=== PATIENT | male | born 1945 | race Caucasian/White ===

== ENCOUNTER 2017-04-26 08:59 | Emergency (ER) | payer MEDICARE ==
[~2017-04-26] VITALS: Ht 165.1 cm; Wt 110.9 kg
[~2017-04-26 08:59] MED LIST: ASCO500C7 GTB; BEN50 GTB; BISA10SU58 PR; DOCU-144 GTB; HEP30MU30 IJ; HYDR-3670 GTB; LANS30CA GTB; LANT3I SC; LEVE-5 GTB; LORA1TAB GTB; LOSA100T47 GTB; MAGN400T27 GTB; MULT-552 GTB; NA P118E PR; POLY17PO6 GTB; SCOP1PAT TD; SENN-53 GTB; WARF7.5T GTB
[2017-04-26 09:00] VITALS: Ht 165.1 cm; Wt 110.9 kg
[2017-04-26] MEDS ORDERED: PANTOPRAZOLE 40 MG INJ IV STA (09:32)
--- NOTE | 2017-04-26 09:36 | ERD ---
ER Documentation Chief Complaint Chief Complaint BIBA FOR COFFEE GROUND EMESIS X2 THIS MORNING HPI Patient is a 71-year-old male with history of stroke who is status post tracheostomy and G-tube who [facility] 2 episodes of coffee-ground emesis this morning. He is on Coumadin for PE. He has history of prior CVA and dementia, which limits history. ROS All systems reviewed and are negative except as per history of present illness. Medications Home Meds Active Scripts Pantoprazole Sodium (Protonix) 40 Mg Granpkt., 40 MG PO DAILY for 14 Days Prov:KAR PERDOMO MD 04/26/17 Reported Medications Insulin Aspart* (Novolog Insulin Pen*) 100 Unit/Ml Soln, 0 SC .SLIDING SCALE AC , EA 04/26/17 Olopatadine* (Patanol* Ophth) 0.1% - 5 Ml Drops, 1 DROP BOTH EYES BID, EA 04/26/17 Memantine* (Namenda*) 10 Mg Tablet, 10 MG PO BID, #60 TAB 04/26/17 Acetaminophen* (Acetaminophen*) 650 Mg Tablet, 650 MG GTB Q6H Y for PAIN AND OR ELEVATED TEMP, #30 TAB 04/26/17 Montelukast Sodium* (Montelukast Sodium*) 10 Mg Tablet, 10 MG GTB QHS, #30 TAB 04/26/17 Amino Acids/Protein Hydrolys (PRO-STAT LIQUID) 30 Ml Liquid.pkt, 30 ML PO DAILY 04/26/17 Escitalopram Oxalate* (Lexapro*) 10 Mg Tablet, 10 MG GTB DAILY, #30 TAB 04/26/17 Lorazepam* (Lorazepam*) 0.5 Mg Tablet, 0.5 MG PO HS Y for ANXIETY, TAB 04/26/17 Warfarin Sodium* (Coumadin*) 7.5 Mg Tablet, 7.5 MG GTB DAILY, TAB 12/04/15 Insulin Glargine* (Lantus*) 100 Unit/Ml Soln, 25 UNIT SC QHS, #1 VIAL 12/04/15 Lansoprazole* (Lansoprazole*) 30 Mg Capsule., 30 MG GTB DAILY, CAP 12/04/15 Docusate Sodium* (Colace*) 100 Mg Capsule, 100 MG GTB BID, #60 CAP 12/04/15 Levetiracetam* (Keppra*) 500 Mg Tablet, 500 MG GTB BID, TAB 12/04/15 Magnesium Oxide* (Mag-Oxide*) 400 Mg Tablet, 200 MG GTB DAILY, TAB 12/04/15 Discontinued Reported Medications Lorazepam* (Lorazepam*) 1 Mg Tablet, 1 MG GTB BID Y for ANXIETY, #30 TAB 12/04/15 Na Phos,M-B/Na Phos,Di-Ba* (Fleet* Enema) 118 Ml Enema, 118 ML LA Q48H Y for CONSTIPATION, ENEMA 12/04/15 Bisacodyl* (Dulcolax*) 10 Mg/Supp.rect Supp.rect, 10 MG LA Q24H Y for CONSTIPATION, SUPP.RECT 12/04/15 Losartan Potassium* (Cozaar*) 100 Mg Tablet, 100 MG GTB DAILY, #30 TAB 12/04/15 Heparin Sod (Porcine) (Heparin) 1,000 Unit/Ml Soln, 5000 UNIT IJ Q8 Y for DVT 12/04/15 Scopolamine Hydrobromide* (Transderm-Scop*) 0.33 Mg/24 Hr Patch.td72, 1 PATCH TD Q3D, #10 PATCH 12/04/15 Diphenhydramine Hcl* (Benadryl*) 50 Mg Cap, 50 MG GTB Q6 Y for ITCHING, CAP 12/04/15 Hydralazine Hcl* (Hydralazine Hcl*) 10 Mg Tablet, 20 MG GTB Q6 Y for ELEVATED BLOOD PRESSURE, #120 TAB 12/04/15 Polyethylene Glycol* (Miralax*) 17 Gm Powd.pack, 17 GM GTB DAILY Y for CONSTIPATION, #30 PACKET 12/04/15 Sennosides* (Senna Lax*) 8.6 Mg Tablet, 1 TAB GTB QHS, TAB 12/04/15 Multivitamins* (Once Daily*) 1 Tab Tablet, 1 TAB GTB DAILY, TAB 12/04/15 Ascorbic Acid* (Vitamin C*) 500 Mg Capsule.sa, 500 MG GTB DAILY, CAP 12/04/15 Allergies Allergies: Coded Allergies: iodine (Verified Allergy, Unknown, 04/26/17) penicillin (Verified Allergy, Unknown, 04/26/17) PMhx/Soc Medical history: Hemorrhagic stroke, dementia, pulmonary embolism, diabetes mellitus Past surgical history: Craniotomy, bilateral knee replacement, abdominal aneurysm repair Social history: [facility] in [facility], no alcohol or tobacco History of Surgery: No (bilateral knee surgery , crainotomy ) Anesthesia Reaction: No Hx Neurological Disorder: Yes Hx Respiratory Disorders: Yes (PT HAS TRACH ) Hx Cardiac Disorders: Yes Hx Psychiatric Problems: No Hx Miscellaneous Medical Probl: No (blood cloths with ivc filter placed) Hx Alcohol Use: No Hx Substance Use: No Hx Tobacco Use: No FmHx Noncontributory Physical Exam Vitals Vital Signs Date Time Temp Pulse Resp B/P Pulse Ox O2 Delivery O2 Flow Rate FiO2 04/26/17 09:15 4 04/26/17 09:00 97.9 104 22 129/92 96 Physical Exam Const: Poor eye contact, at baseline per Head: Atraumatic Eyes: Normal Conjunctiva, no pallor, no icterus, pupils equal, round and reactive ENT: Normal External Ears, Nose and Mouth. His membranes moist Neck: Full range of motion. No JVD Resp: Clear to auscultation bilaterally no wheezes, no rales Cardio: Regular rate and rhythm, no murmurs Abd: Soft, non tender, non distended. Skin: No petechiae or rashes Ext: No cyanosis, or edema Neur: Awake, does not follow commands, no spontaneous movement Psych: Able to assess due to patient's condition Result Diagram: 04/26/17 1107 04/26/17 1107 Results 24 hrs Laboratory Tests Test 04/26/17 11:07 04/26/17 13:00 White Blood Count 13.710^3/ul Red Blood Count 6.2210^6/ul Hemoglobin 17.7g/dl Hematocrit 53.8% Mean Corpuscular Volume 86.5fl Mean Corpuscular Hemoglobin 28.5pg Mean Corpuscular Hemoglobin Concent 32.9g/dl Red Cell Distribution Width 15.9% Platelet Count 00339^3/UL Mean Platelet Volume 13.1fl Neutrophils % 70.7% Lymphocytes % 12.8% Monocytes % 13.9% Eosinophils % 1.6% Basophils % 0.4% Nucleated Red Blood Cells % 0.0/100WBC Neutrophils # 9.710^3/ul Lymphocytes # 1.810^3/ul Monocytes # 1.910^3/ul Eosinophils # 0.210^3/ul Basophils # 0.110^3/ul Nucleated Red Blood Cells # 0.010^3/ul Prothrombin Time 26.9Sec Prothrombin Time Ratio 2.1 INR International Normalized Ratio 2.41 Activated Partial Thromboplast Time 38.9Sec Sodium Level 137mmol/L Potassium Level 4.6mmol/L Chloride Level 101mmol/L Carbon Dioxide Level 29mmol/L Anion Gap 12 Blood Urea Nitrogen 15mg/dl Creatinine 0.77mg/dl Glucose Level 172mg/dl Calcium Level 9.4mg/dl Total Bilirubin 0.8mg/dl Direct Bilirubin 0.00mg/dl Indirect Bilirubin 0.8mg/dl Aspartate Amino Transf (AST/SGOT) 30IU/L Alanine Aminotransferase (ALT/SGPT) 40IU/L Alkaline Phosphatase 118IU/L Troponin I < 0.012ng/ml Total Protein 7.1g/dl Albumin 3.7g/dl Globulin 3.40g/dl Albumin/Globulin Ratio 1.08 Stool Occult Blood NEGATIVE Current Medications Medications (Trade) Dose Ordered Sig/Luis Fernando Route PRN Reason Start Time Stop Time Status Last Admin Dose Admin Pantoprazole (Protonix Iv) 40 mg ONCE STAT IV 04/26/17 09:32 04/26/17 09:33 DC 04/26/17 11:38 Procedures/MDM EKG read by me: Time 1007, rate 107 Rhythm: Sinus tachycardia Bl[place]: Left axis deviation Intervals: Normal ST-T waves: no ischemic changes Ectopy: Occasional PVCs Q-waves: Inferior and lateral Q waves Impression: No evidence of ischemia, evidence of prior [place] MDM: Patient is a 71-year-old male [facility] for 2 episodes of coffee-ground emesis. The patient is vent dependent and nonverbal. He was found to have a normal hemoglobin and negative guaiac. There was no further episodes of emesis while in the ER. The patient was hemodynamically stable and without respiratory complication. He did require suctioning of a large volume of mucus, but chest x-ray did not show pneumonia. The patient is on Coumadin for prior PE. I do not suspect significant gastric bleeding. I believe he can be safely [facility] the [facility] with Protonix and return precautions if there are further episodes of coffee-ground emesis, hematemesis, or dark stools. Departure Diagnosis: Primary Impression: Coffee ground emesis Condition: Stable KAR PERDOMO MD Apr 26, 2017 09:36
[2017-04-26] MEDS ORDERED: LORA0.5T PO (10:11)
[2017-04-26] MEDS ORDERED: ESCI10TA GTB (10:12)
[2017-04-26] MEDS ORDERED: AMIN30LI PO (10:13)
[2017-04-26] MEDS ORDERED: MONT10TA24 GTB (10:13)
[2017-04-26] MEDS ORDERED: ACET-2047 GTB (10:14)
[2017-04-26] MEDS ORDERED: MEMA10TA16 PO (10:14)
[2017-04-26] MEDS ORDERED: NOVO3I SC (10:15)
[2017-04-26] MEDS ORDERED: OLOP5DRO12 BOTH EYES (10:15)
--- NOTE | 2017-04-26 10:16 | RADRPT ---
PROCEDURE: XR Chest. CLINICAL INDICATION: Upper GI bleed TECHNIQUE: A single AP view of the chest was obtained. COMPARISON: CR PORT CHEST 12/06/2015; CR CHEST 12/04/2015; CR CHEST 10/19/2015; CR CHEST 10/16/2015 FINDINGS: A tracheostomy tube is in place. Lung volumes are low with compressive changes and crowding of the central pulmonary vascular marking s. No focal airspace opacity, pleural effusion or pneumothorax is seen. The cardiomediastinal silho uette is mildly enlarged. Calcifications are seen within the aortic arch. The osseous structures ar e unremarkable. IMPRESSION: 1. Low lung volumes with compressive changes. 2. Mild cardiomegaly and aortic atherosclerosis. 3. Tracheostomy tube in place. RPTAT: HH .Kamryn Harding MD, Date Time Electronically viewed and signed by .Kamryn Harding MD, on 04/26/2017 10:16 .G/
[2017-04-26 11:15] LABS: ABNORMAL IP MESSAGE 1; BASOPHIL # 0.1 10^3/ul (0.0-0.1); BASOPHILS % 0.4 % (0.0-2.0); EOSINOPHILS # 0.2 10^3/ul (0.0-0.5); EOSINOPHILS % 1.6 % (0.0-7.0); HEMATOCRIT 53.8 % (42.0-52.0); HEMOGLOBIN 17.7 g/dl (14.0-18.0); LYMPHOCYTES # 1.8 10^3/ul (0.8-2.9); LYMPHOCYTES % 12.8 % (15.0-51.0); MEAN CORPUSCULAR HEMOGLOBIN 28.5 pg (29.0-33.0); MEAN CORPUSCULAR HGB CONC 32.9 g/dl (32.0-37.0); MEAN CORPUSCULAR VOLUME 86.5 fl (82.0-101.0); MONOCYTE # 1.9 10^3/ul (0.3-0.9); MONOCYTES % 13.9 % (0.0-11.0); NEUTROPHIL # 9.7 10^3/ul (1.6-7.5); NEUTROPHILS % 70.7 % (39.0-77.0); PLATELET COUNT 190 10^3/UL (140-415); POSITIVE DIFF @See below; RED BLOOD COUNT 6.22 10^6/ul (4.70-6.10); RED CELL DISTRIBUTION WIDTH 15.9 % (11.5-14.5); WHITE BLOOD COUNT 13.7 10^3/ul (4.8-10.8)
[2017-04-26 11:16] LABS: MEAN PLATELET VOLUME 13.1 fl (7.4-10.4)
[2017-04-26 11:37] LABS: ALANINE AMINOTRANSFERASE 40 IU/L (13-69); ALBUMIN 3.7 g/dl (3.3-4.9); ALBUMIN/GLOBULIN RATIO 1.08; ALKALINE PHOSPHATASE 118 IU/L (42-121); ANION GAP 12 (8-16); ASPARTATE AMINO TRANSFERASE 30 IU/L (15-46); BILIRUBIN,INDIRECT 0.8 mg/dl (0-1.1); BILIRUBIN,TOTAL 0.8 mg/dl (0.2-1.3); BLOOD UREA NITROGEN 15 mg/dl (7-20); CALCIUM 9.4 mg/dl (8.4-10.2); CARBON DIOXIDE 29 mmol/L (21-31); CHLORIDE 101 mmol/L (97-110); CREATININE 0.77 mg/dl (0.61-1.24); GLUCOSE 172 mg/dl (70-220); POTASSIUM 4.6 mmol/L (3.5-5.1); SODIUM 137 mmol/L (135-144); TOTAL PROTEIN 7.1 g/dl (6.1-8.1)
[2017-04-26 11:41] LABS: INR 2.41; PROTIME 26.9 Sec (11.9-14.9); PT RATIO 2.1
[2017-04-26 11:42] LABS: PARTIAL THROMBOPLASTIN TIME 38.9 Sec (25.0-35.0)
[2017-04-26 11:50] LABS: TROPONIN-I < 0.012 ng/ml (0.00-0.12)
[2017-04-26] MEDS ORDERED: PANT40SU PO (14:35)
[2017-04-26 15:11] LABS: URINE BLOOD (Dip) POC Trace-intact (NEGATIVE)
[2017-04-26 16:34] VITALS: BP 176/99; PULSE 98; RESP 17; TEMP 98.7
== END 2017-04-26 16:48 | disposition home or self-care (01) ==
LOC: E/R 08:59
DX: K92.0 Hematemesis (principal); E11.9 Type 2 diabetes mellitus without complications; F03.90 Unspecified dementia, unspecified severity, without behavioral disturbance, psychotic disturbance, mood disturbance, and anxiety; R00.0 Tachycardia, unspecified; Z96.653 Presence of artificial knee joint, bilateral; Z86.73 Personal history of transient ischemic attack (TIA), and cerebral infarction without residual deficits; Z79.4 Long term (current) use of insulin; Z79.01 Long term (current) use of anticoagulants
CPT/HCPCS: 36415; 71010; 80053; 81003; 82270; 84484; 85025; 85610; 85730; 86850; 86900; 86901; 93005; 96374; 99285; A4310; C9113